=== PATIENT | female | born 1975 | race Caucasian/White ===

== ENCOUNTER 2016-08-23 02:20 | Emergency (ER) | payer OTHER ==
[~2016-08-23 02:20] MED LIST: AMARYL PO; AMITRIPTYLINE100 MG PO; ASPIRIN ENTERI325 M1 PO; ATORVASTATIN CA40 MG PO; COGENTIN1 M1 PO; COREG12.5 M1 PO; COREG12.5 MG PO; DOC-Q-LACE100 MG PO; FLUOXETINE HCL40 MG PO; HYDROXYZINE HCL25 M1 PO; HYDROXYZINE HCL50 MG PO; KEPPRA750 M1 PO; KEPPRA750 MG PO; LEVEMIR100 UNITS/ SUBQ; LIPITOR20 MG PO; LISINOPRIL10 MG PO; LITHIUM CARBON300 M1 PO; METFORMIN HCL500 M1 PO; NABUMETONE500 M1 PO; PLAVIX PO; POTASSIUM CHLO10 MEQ PO; ROBAXIN500 MG PO; SALSALATE500 MG PO; SEROQUEL PO; TRILEPTAL300 MG PO; ZESTRIL10 MG PO; ZOLOFT PO
== END 2016-08-23 03:00 | disposition left against medical advice (07) ==
LOC: CED 02:20
DX: Z53.21 Procedure and treatment not carried out due to patient leaving prior to being seen by health care provider (principal)

== ENCOUNTER 2017-01-07 01:54 | Emergency (ER) | payer OTHER ==
[~2017-01-07] VITALS: Ht 165.1 cm; Wt 79.9 kg
--- NOTE | ~2017-01-07 | EKG ---
PATIENT: DANIEL CHAN UNIT #: [id number] Ventricular Rate: 73 BPM Atrial Rate: 73 BPM P-R Interval: 166 ms QRS Duration: 100 ms Q-T Interval: 400 ms QTC Calculation(Bezet): 440 ms P [place]: -5 degrees Calculated R [place]: 26 degrees Calculated T [place]: 5 degrees Diagnosis Line: Normal sinus rhythm Diagnosis Line: Normal ECG Diagnosis Line: When compared with ECG of 28-JUN-2016 07:16, Diagnosis Line: T wave inversion now evident in Inferior leads Diagnosis Line: Confirmed by ROSEMARY ROD MD ([id number]) on 01/08/2017 Diagnosis Line: 4:55:39 PM INTERPRETING MD: MARCEL PRETTY
--- NOTE | ~2017-01-07 | CR72 ---
[facility] A Service of [facility] & [facility] RADIOLOGY TEXT RESULTS PATIENT: DANIEL CHAN LOCATION: [facility] : 71 UNIT #: [id number] AGE: [address]: Sherno Stoll APRN SEX: F ORDER DR: [id number] [facility] [address] [place], [place] [address] [id number] E MR#: [id number] Acc #: [id number] NAME: DANIEL CHAN : 1975 SEX: F STUDY DATE/TIME: 01/07/2017 2:55 UNIT: [facility] ROOM: STUDY DESCRIPTION: CR Chest Single View Portable Attending Physician: Sheron Stoll A.P.R.N. Ordering Physician: Sheron Stoll A.P.R.N. Primary Care Physician: Freya Robertson M.D. MEDICAL IMAGING REPORT This report is preliminary unless electronic signature is present EXAM Chest x-ray 01/07/2017 HISTORY 41-year-old female in the ED complaining of new onset shortness of air tonight. TECHNIQUE AP portable chest x-ray. FINDINGS No active disease in the chest. Heart size and pulmonary vascularity are within normal limits given AP portable technique. Mild chronic elevation of right hemidiaphragm. No visible pulmonary infiltrate, pneumothorax or pleural effusion. IMPRESSION No active disease. No change since 12/10/2016. Dictated by... Nitin Andersen M.D. THIS IS AN ELECTRONICALLY VERIFIED REPORT Nitin Andersen M.D. at 01/07/2017 9:48 PM VAIBHAVW/lion TD: 01/07/2017 08:01 JOB #: [id number] MEDICAL IMAGING REPORT Page 1 of 1 COPY
[2017-01-07 03:20] LABS: BASOPHIL# 0.1 X10e3 (0-0.3); BASOPHIL% 0.8 % (0-2.5); EOSINOPHIL# 0.2 X10e3 (0-0.7); EOSINOPHIL% 3.1 % (0.0-7.0); HEMATOCRIT 35.7 % (35.0-45.0); LYMPHOCYTE# 1.6 X10e3 (1.0-3.5); MEAN CELL VOLUME 80.8 FL (83-96); MEAN CORPUSCULAR HEMOGLOBIN 27.2 PG (28-34); MEAN CORPUSCULAR HGB CONC 33.7 g/dL (30-36); MEAN PLATELET VOLUME 7.2 FL (6.5-11.5); MONOCYTE# 0.7 X10e3 (0-1.0); MONOCYTE% 9.1 % (3.0-12.0); NEUTROPHIL# 4.7 X10e3 (1.5-7.1); PLATELET COUNT 296 X10e3 (140-420); RED BLOOD COUNT 4.41 X10e (3.90-5.30); RED CELL DISTRIBUTION WIDTH 16.8 % (11.0-15.5); WHITE BLOOD COUNT 7.3 X10e3 (4.0-10.5)
[2017-01-07 03:22] LABS: POC - CKMB <1.0 ng/mL (0.0-7.9); POC - TROPONIN <0.05 ng/mL (<=0.05)
[2017-01-07 03:24] LABS: DIFF IND NO
[2017-01-07 03:57] LABS: ALBUMIN SERUM 4.2 g/dL (3.5-5.0); ALKALINE PHOSPHATASE 60 U/L (32-92); ALT (SGPT) 16 U/L (10-40); AST (SGOT) 14 U/L (10-42); BILIRUBIN, DIRECT 0.1 mg/dL (0.0-0.2); BILIRUBIN,INDIRECT 0.3 mg/dL (0.0-0.9); BILIRUBIN,TOTAL 0.4 mg/dL (0.2-2.0); CALCIUM SERUM 8.7 mg/dL (8.4-10.2); CARBON DIOXIDE 23 mmol/L (22-31); CHLORIDE 89 mmol/L (100-111); CREATININE SERUM 0.5 mg/dL (0.6-1.4); GLOM FILT RATE Estimated 118.6 mL/min (>60); GLUCOSE FASTING 237 mg/dL (70-110); POTASSIUM 3.6 mmol/L (3.5-5.1); PROTEIN TOTAL SERUM 6.8 g/dL (6.0-8.3)
[2017-01-07 03:58] LABS: BLOOD UREA NITROGEN <5 mg/dL (9-23)
[2017-01-07 03:59] LABS: SODIUM 121 mmol/L (135-145)
[2017-01-07 04:16] LABS: PARTIAL THROMBOPLASTIN TIME 26.8 SECONDS (23.5-31.3); PROTHROMBIN TIME (PATIENT) 10.7 SECONDS (10.0-11.7)
== END 2017-01-07 04:55 | disposition left against medical advice (07) ==
LOC: CED 01:54
PROVIDERS: Nurse Practitioner
DX: R06.02 Shortness of breath (principal); I11.0 Hypertensive heart disease with heart failure; I50.9 Heart failure, unspecified; E11.9 Type 2 diabetes mellitus without complications; E78.5 Hyperlipidemia, unspecified; F31.9 Bipolar disorder, unspecified; F20.9 Schizophrenia, unspecified; Z87.891 Personal history of nicotine dependence; Z90.49 Acquired absence of other specified parts of digestive tract; Z79.899 Other long term (current) drug therapy; Z88.8 Allergy status to other drugs, medicaments and biological substances
CPT/HCPCS: 36415; 71010; 80048; 80076; 82553; 83880; 84484; 84703; 85025; 85610; 85730; 93005; 94640; 99285